=== PATIENT | male | born 1960 | race Caucasian/White ===

== ENCOUNTER 2018-02-28 14:00 | Emergency (ER) | payer BC ==
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
[2018-02-28 15:23] LABS: Acetaminophen Less than 6.0 mcg/mL (10.0-30.0); Alcohol Less than 10 mg/dL (Less than 10); Salicylate Less than 8.0 mg/dL (15.0-30.0)
--- NOTE | 2018-02-28 16:34 | MRI ---
MRI BRAIN WITH AND WITHOUT CONTRAST: Date: 02/28/18 HISTORY: Slurred speech since Saturday. COMPARISON: None. TECHNIQUE: Brain MRI is performed with and without intravenous Gadolinium administration. Multisequential, multi planar imaging is performed. FINDINGS: No hemorrhage on the axial gradient echo sequence. There is T2 and FLAIR hyperintensity involving the left basal ganglion, left coronal radiata, and lef t centrum semiovale. There is associated restricted diffusion. Early subacute infarct is suspected gi jose the patient's history. Central arterial flow-voids are maintained. There is mucosal disease of the paranasal sinuses. Adequate mastoid air cell aeration. No pathologic enhancement of the brain parenchyma. Calvarium has a normal T1 marrow signal intensity. Midline brain parenchymal structures are unremarka ble. IMPRESSION: 1. No pathologic enhancement of the brain parenchyma. 2. 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 POS: NARENDRA
--- NOTE | 2018-02-28 17:54 | PDOC.EVN ---
Event Note - Event Note Event Note: Date/Time: 02/28/18 7414 I personally evaluated the patient and discussed the management with Dr. Bolaños. See Dr. Bolaños note in [place]. CVA confirmed with CTA and MRI in ER. MIld expressive verbal aphasia noted. No CN or motor deficits. No coordination deficits. Pt reports subtle left sided sensory decrease compared to right. Consideration for echo PT/OT eval as observation given and discussed with patient. As the CVA is already 5 days old , no acute Pt treatment indicated. Patient prefers outpatient echo. We will initiate ASA/Plavix. BP was normal at my exam. Follow up in our clinic on Saturday.
--- NOTE | 2018-03-01 13:59 | EKG ---
Test Reason : Blood Pressure : / mmHG Vent. Rate : 074 BPM Atrial Rate : 074 BPM P-R Int : 152 ms QRS Dur : 086 ms QT Int : 366 ms P-R-T Axes : 041 001 -05 degrees QTc Int : 406 ms Normal sinus rhythm Possible Left atrial enlargement Borderline ECG Confirmed by YAJAIRA BAEZA D.O. ([id number]), film editor JORGE CARIAS ([id number]) on 03/01/2018 1:59:04 PM Referred By: Confirmed By:YAJAIRA BAEZA D.O.
== END 2018-02-28 17:25 | disposition home or self-care (01) ==
LOC: ERS 14:00
DX: I63.9 Cerebral infarction, unspecified (principal); F17.210 Nicotine dependence, cigarettes, uncomplicated
CPT/HCPCS: 36415; 70553; 71045; 80307; 84484; 93005

== ENCOUNTER 2022-02-13 12:38 | Emergency (ER) | payer BC | END 2022-02-13 14:09 | disposition left against medical advice (07) | LOC: ERS 12:38 | DX: Z53.21 Procedure and treatment not carried out due to patient leaving prior to being seen by health care provider (principal) ==

== ENCOUNTER 2022-02-14 09:09 | Emergency (ER) | payer OTHER, BC ==
[2022-02-14] MEDS ORDERED: Ketorolac Tromethamine 30 MG/ML VIAL ONE (11:18)
== END 2022-02-14 12:20 | disposition home or self-care (01) ==
LOC: ERS 09:09
DX: S00.81XA Abrasion of other part of head, initial encounter (principal); M25.511 Pain in right shoulder; M25.561 Pain in right knee; M25.551 Pain in right hip; M25.552 Pain in left hip; M25.562 Pain in left knee; F17.210 Nicotine dependence, cigarettes, uncomplicated; V27.49XA Other motorcycle driver injured in collision with fixed or stationary object in traffic accident, initial encounter
CPT/HCPCS: 71045; 96372; J1885